=== PATIENT | male | born 1960 | race Caucasian/White ===

== ENCOUNTER → 2016-07-17 | Outpatient (CLI) | payer BC ==
[2016-07-17 18:22] LABS: Basophils # (A) 0.1 k/uL (0-0.2); Basophils % (A) 1 %; CH 31.9; CHCM 34.5; Eosinophils # (A) 0.1 k/uL (0-0.7); Eosinophils % (A) 2 %; HCT 45.8 % (39.0-53.0); HDW 2.54; HGB 15.8 gm/dL (13.0-17.5); Luc # (Auto) 0.16; Luc % (Auto) 3; Lymphocytes # (A) 2.1 k/uL (1.0-4.8); Lymphocytes % (A) 39 %; MCH 32.1 pg (25.0-35.0); MCHC 34.6 g/dL (31.0-37.0); MCV 92.8 fL (80.0-100.0); Mean Platelet Volume 8.8; Monocytes # (A) 0.4 k/uL (0-1.0); Monocytes % (A) 7 %; Neutrophils # (A) 2.7 k/uL (1.3-7.7); Neutrophils % (A) 48 %; RBC 4.94 m/uL (4.30-5.90); RDW 12.4 % (11.5-15.5); WBC 5.5 k/uL (3.8-10.6); WBC (Perox) 5.51
[2016-07-17 18:52] LABS: ALT 68 U/L (21-72); AST 38 U/L (17-59); Alkaline Phosphatase 60 U/L (38-126); Anion Gap 11 mmol/L; Blood Urea Nitrogen 15 mg/dL (9-20); Calcium 9.4 mg/dL (8.4-10.2); Carbon Dioxide 27 mmol/L (22-30); Chloride 103 mmol/L (98-107); Cholesterol 227 mg/dL (<200); Glucose 94 mg/dL (74-99); HDL Cholesterol 43 mg/dL (40-60); Non-African American GFR(MDRD) >60 (>60 ml/min/1.73 sqM); Potassium 4.3 mmol/L (3.5-5.1); Sodium 141 mmol/L (137-145); Total Bilirubin 1.4 mg/dL (0.2-1.3); Total Protein 7.2 g/dL (6.3-8.2); Triglycerides 256 mg/dL (<150)
== END | disposition home or self-care (01) ==
LOC: MMGSC 09:05
PROVIDERS: ATTEND Family Medicine
DX: Z00.00 Encounter for general adult medical examination without abnormal findings (principal); E78.00 Pure hypercholesterolemia, unspecified; Z12.5 Encounter for screening for malignant neoplasm of prostate; R03.0 Elevated blood-pressure reading, without diagnosis of hypertension
CPT/HCPCS: 80061; 80053; 84443; 85025; 36415; G0103

== ENCOUNTER → 2017-09-09 | Outpatient (CLI) | payer BC ==
[2017-09-09 11:30] LABS: Basophils # (A) 0.1 k/uL (0-0.2); Basophils % (A) 1 %; Eosinophils # (A) 0.1 k/uL (0-0.7); Eosinophils % (A) 3 %; HCT 44.7 % (39.0-53.0); HGB 15.3 gm/dL (13.0-17.5); Lymphocytes # (A) 2.1 k/uL (1.0-4.8); Lymphocytes % (A) 39 %; MCHC 34.2 g/dL (31.0-37.0); MCV 90.5 fL (80.0-100.0); Monocytes # (A) 0.4 k/uL (0-1.0); Monocytes % (A) 8 %; Neutrophils # (A) 2.5 k/uL (1.3-7.7); Neutrophils % (A) 46 %; Platelet Count 212 k/uL (150-450); RBC 4.94 m/uL (4.30-5.90); RDW 12.5 % (11.5-15.5); WBC 5.4 k/uL (3.8-10.6)
== END | disposition home or self-care (01) ==
LOC: LABPAT 10:26
PROVIDERS: ATTEND Surgery
DX: Z01.812 Encounter for preprocedural laboratory examination (principal); K43.2 Incisional hernia without obstruction or gangrene; F17.200 Nicotine dependence, unspecified, uncomplicated; D64.9 Anemia, unspecified
CPT/HCPCS: 36415; 85025; 93005

== ENCOUNTER 2017-09-17 08:42 | Day surgery (SDC) | payer BC ==
[2017-09-11 13:17] VITALS: BMI 30.2
[~2017-09-17 08:42] MED LIST: DEXAMETHASONE SOD PHOSPHATE 10 MG/ML 1 ML VIAL IV ONE; HEPARIN SODIUM,PORCINE 5,000 UNIT/ML 1 ML VIAL SQ ONE; LACTATED RINGERS 1,000 ML IV SCH; LIDOCAINE 1% 20 ML VIAL (10MG/ML) FOR IV START INTRADERMA PRN; ONDANSETRON 4 MG/2 ML VIAL IVP ONE; SCOPOLAMINE 1.5MG/72HR PATCH TRANSDERM ONE; ceFAZolin IN SWFI 2 GM/20 ML SYRINGE IVP ONE
--- NOTE | 2017-09-17 10:31 | P.GSHP ---
History of Present Illness H&P Date: 09/17/17 Chief Complaint: Incisional hernia This a 57-year-old male who has complaints of a abdominal mass at his umbilicus. Patient appears umbilical hernia repair. Patient has developed an incisional hernia at his umbilicus. He presents today for laparoscopic robotic assistance repair. Past Medical History Additional Past Medical History / Comment(s): ventral hernia History of Any Multi-Drug Resistant Organisms: None Reported Past Surgical History: Hernia Repair, Tonsillectomy Past Anesthesia/Blood Transfusion Reactions: Postoperative Nausea & Vomiting ( PONV) Smoking Status: Never smoker - Past Family History Mother Family Medical History: No Reported History Medications and Allergies Home Medications Medication Instructions Recorded Confirmed Type No Known Home Medications [No 09/11/17 09/17/17 History Known Home Medications] Allergies Allergy/AdvReac Type Severity Reaction Status Date / Time Penicillins Allergy Unknown Verified 09/17/17 09:51 Childhood Surgical - Exam Vital Signs Temp Pulse Resp BP Pulse Ox 97.7 F 77 16 152/96 98 09/17/17 09:44 09/17/17 09:44 09/17/17 09:44 09/17/17 09:44 09/17/17 09:44 - General well developed, no distress - Eyes PERRL - ENT normal pinna - Neck no masses - Respiratory normal expansion - Cardiovascular Rhythm: regular - Abdomen 1 cm incisional hernia located just below the umbilicus Abdomen: soft, non tender Assessment and Plan Assessment: Incisional hernia. We'll perform laparoscopic robotic-assisted repair.
[2017-09-17] MEDS ORDERED: GLYCOPYRROLATE 0.2 MG/ML 2 ML VIAL ONE (10:46)
[2017-09-17] MEDS ORDERED: MEPERIDINE 50 MG/ML SYRINGE ONE (10:46)
[2017-09-17] MEDS ORDERED: MIDAZOLAM 2 MG/2 ML VIAL ONE (10:46)
[2017-09-17] MEDS ORDERED: LIDOCAINE 1% INJ 10MG/ML (20 ML MDV) ONE (10:46)
[2017-09-17] MEDS ORDERED: PROPOFOL 10 MG/ML 20 ML VIAL IV ONE (10:46)
[2017-09-17] MEDS ORDERED: fentaNYL (PF) 50 MCG/ML 2 ML AMP ONE (10:46)
[2017-09-17] MEDS ORDERED: NEOSTIGMINE 1 MG/ML 10 ML VIAL ONE (10:46)
[2017-09-17] MEDS ORDERED: ROCURONIUM BROMIDE 10 MG/ML 10 ML VIAL IV ONE (10:46)
[2017-09-17] MEDS ORDERED: SUCCINYLCHOLINE CHLORIDE 100 MG/5 ML SYR IV ONE (10:46)
[2017-09-17] MEDS ORDERED: BUPIVACAINE (PF) 0.25% 30 ML VIAL SQ ONE ×2 (11:03)
[2017-09-17] MEDS ORDERED: LACTATED RINGERS 1,000 ML IV ONE (11:27)
[2017-09-17 12:21] VITALS: TEMP 97
[2017-09-17] MEDS: MORPHINE SULFATE 2 MG/ML SYRINGE IV PRN ×4 (12:34→13:07)
[2017-09-17] MEDS: fentaNYL (PF) 50 MCG/ML 2 ML AMP IVP ONE ×2 (13:18→13:22)
[2017-09-17] MEDS ORDERED: KETOROLAC 30 MG/ML 1 ML VIAL IVP ONE (13:40)
[2017-09-17] MEDS ORDERED: ONDANSETRON 4 MG/2 ML VIAL IVP ONE (14:09)
[2017-09-17] MEDS ORDERED: HYDROcodone/APAP 7.5-325MG 1 EACH TAB PO ONE (14:39)
[2017-09-17 15:18] VITALS: RESP 18
[2017-09-17 15:20] VITALS: BP 140/89; PULSE 90
--- NOTE | 2017-09-18 12:12 | P.OP ---
Date of Procedure: 09/17/17 Preoperative Diagnosis: Incisional hernia Postoperative Diagnosis: Incisional hernia Procedure(s) Performed: Robotic-assisted laparoscopic repair of incisional hernia Anesthesia: JEAN-PAUL Surgeon: Rafeal Kramer Estimated Blood Loss (ml): 5 Pathology: none sent Condition: stable Disposition: PACU Description of Procedure: The patient was placed on the operating table in the supine position. He received general anesthesia. His abdomen was prepped and draped usual fashion. Using a 5 mm optical trocar under direct visualization the peritoneal cavity was entered in the left upper quadrant. The abdomen was then insufflated. The laparoscope was placed back into the perineal cavity. Next a 8 mm robotic trocar was placed in the left lower quadrant and a 12 mm robotic trocar was placed in the left lateral position. The original 5 mm trocar was exchanged for a 8 mm robotic trocar. The patient's placed in the left side up position. And the patient was docked to the robot. The incisional hernia was visualized. Using hook cautery the peritoneum over the incisional hernia was excised. The fascial opening was repaired using 0V LOC suture. Next a piece of 11 cm round ventral light ST mesh was placed into the. Cavity and secured with 2 OV lock suture. The patient was undocked the robot. The needles were retrieved. The fascia of the 12 mm trocar site was closed with 0 Ethibond suture. Skin was closed interrupted 3-0 Monocryl suture. Dermabond dressings was applied. Patient tolerated procedure well and was sent to recovery room stable condition.
== END 2017-09-17 15:48 | disposition home or self-care (01) ==
LOC: OR 08:42 → EDSTATUS 10:15 → OR 15:48
PROVIDERS: ATTEND Surgery
DX: K43.2 Incisional hernia without obstruction or gangrene (principal); Z88.0 Allergy status to penicillin
CPT/HCPCS: 49654; S2900; 86850; 86900; 86901

== ENCOUNTER → 2017-09-19 | Outpatient (CLI) | payer BC ==
[2017-09-19 21:44] LABS: Basophils % (A) 0 %; Eosinophils # (A) 0.1 k/uL (0-0.7); Eosinophils % (A) 1 %; HCT 49.4 % (39.0-53.0); HGB 16.8 gm/dL (13.0-17.5); Lymphocytes # (A) 1.9 k/uL (1.0-4.8); Lymphocytes % (A) 21 %; MCH 30.9 pg (25.0-35.0); Mean Platelet Volume 8.7; Monocytes # (A) 0.7 k/uL (0-1.0); Monocytes % (A) 8 %; Neutrophils # (A) 6.4 k/uL (1.3-7.7); Neutrophils % (A) 69 %; Platelet Count 239 k/uL (150-450); RBC 5.43 m/uL (4.30-5.90); RDW 12.5 % (11.5-15.5); WBC 9.3 k/uL (3.8-10.6)
== END | disposition home or self-care (01) ==
LOC: MMGSC 14:24
PROVIDERS: ATTEND Family Medicine
DX: R50.9 Fever, unspecified (principal); J32.9 Chronic sinusitis, unspecified
CPT/HCPCS: 36415; 85025; 87070

== ENCOUNTER → 2018-02-24 | Outpatient (CLI) | payer BC ==
--- NOTE | 2018-02-25 02:06 | MR ---
EXAMINATION TYPE: MR shoulder LT wo con DATE OF EXAM: 02/24/2018 COMPARISON: None HISTORY: Left Shoulder Pain TECHNIQUE: Multiplanar, multisequence imaging of the left shoulder is performed without contrast. FINDINGS: There is shoulder joint effusion. There is fluid in the subacromial joint space. There is thickening and increased signal in the supraspinatus tendon with some thickening and retraction. This is a full- thickness tear. Biceps tendon is intact. The subscapularis tendon is intact. Glenoid charla appear intact. I see no ev idence of a fracture. There is moderate spurring at the AC joint. There is mild impingement on the jerome praspinatus muscle and tendon. IMPRESSION: There is full-thickness vertical tear through the supraspinatus tendon. There is extensive thickening of the supraspinatus tendon with edema. There is spurring at the AC joint and mild subacromial impin gement. Shoulder joint effusion.
== END ==
LOC: RADMRIMAIN 15:04
PROVIDERS: ATTEND Orthopaedic Surgery
DX: M75.102 Unspecified rotator cuff tear or rupture of left shoulder, not specified as traumatic (principal); M25.412 Effusion, left shoulder; M75.92 Shoulder lesion, unspecified, left shoulder

== ENCOUNTER → 2018-03-03 | Outpatient (CLI) | payer BC ==
[2018-03-03 11:07] LABS: Basophils # (A) 0.1 k/uL (0-0.2); Basophils % (A) 1 %; Eosinophils # (A) 0.1 k/uL (0-0.7); Eosinophils % (A) 2 %; HCT 45.9 % (39.0-53.0); HGB 15.5 gm/dL (13.0-17.5); Lymphocytes # (A) 1.9 k/uL (1.0-4.8); Lymphocytes % (A) 34 %; MCH 31.5 pg (25.0-35.0); MCHC 33.8 g/dL (31.0-37.0); MCV 93.2 fL (80.0-100.0); Mean Platelet Volume 7.6; Monocytes # (A) 0.4 k/uL (0-1.0); Monocytes % (A) 7 %; Neutrophils # (A) 3.2 k/uL (1.3-7.7); Neutrophils % (A) 55 %; Platelet Count 218 k/uL (150-450); RBC 4.92 m/uL (4.30-5.90); RDW 12.4 % (11.5-15.5); WBC 5.7 k/uL (3.8-10.6)
[2018-03-03 11:23] LABS: Potassium 4.2 mmol/L (3.5-5.1)
== END | disposition home or self-care (01) ==
LOC: LABWHC1 09:33
PROVIDERS: ATTEND Orthopaedic Surgery
DX: Z01.812 Encounter for preprocedural laboratory examination (principal); M75.42 Impingement syndrome of left shoulder
CPT/HCPCS: 36415; 80051; 85025

== ENCOUNTER → 2018-04-01 | Day surgery (SDC) | payer BC ==
[2018-03-25 15:52] VITALS: BMI 29.5
--- NOTE | 2018-03-31 13:52 | HP ---
HISTORY AND PHYSICAL DATE OF SERVICE: 04/01/2018 Tenzin Perdomo is a 57-year-old patient seen with progressive left shoulder pain. We discussed treatment options. He elected to proceed with arthroscopy. Consent was obtained. PAST MEDICAL HISTORY: Noncontributory. PAST SURGICAL HISTORY: Noncontributory. DAILY MEDICATIONS: None. ALLERGIES: PENICILLIN. SOCIAL HISTORY: Patient denies tobacco use. PHYSICAL EVALUATION LEFT SHOULDER: Flexion 150 degrees, abduction 140 degrees, external rotation 60 degrees with some weakness, tenderness along the anterolateral acromion rotator cuff insertion site. Impingement sign positive 70 degrees. Distal neurovascular exam intact. LEFT SHOULDER RADIOGRAPHS: Type 2 anterior acromion, evidence for acromioclavicular joint osteoarthritis. Left shoulder MRI revealed rotator cuff tear, acromioclavicular joint osteoarthritis and impingement. IMPRESSION: 1. Left shoulder impingement with rotator cuff tear. 2. Left shoulder acromioclavicular joint osteoarthritis. PLAN: Left shoulder arthroscopy with subacromial decompression, probable arthroscopic rotator cuff repair, possible Jessica procedure and debridement. MMODL / IJN: [id number] /
[~2018-04-01] MED LIST changes: +ENALAPRILAT 1.25 MG/ML 1 ML VIAL IVP ONE; -HEPARIN SODIUM,PORCINE 5,000 UNIT/ML 1 ML VIAL SQ ONE; +HYDROmorphone 1 MG/ML 1 ML SYRINGE IVP PRN; +LABETALOL SYRINGE 5 MG/ML IVP ONE; +LACTATED RINGERS 1,000 ML IV ONE; +LIDOCAINE 1% 20 ML VIAL (10MG/ML) FOR IV START INTRADERMA ONE; -LIDOCAINE 1% 20 ML VIAL (10MG/ML) FOR IV START INTRADERMA PRN; +LIDOCAINE 1% INJ 10MG/ML (20 ML MDV) ONE; +METOPROLOL TARTRATE 5 MG/5 ML VIAL IVP ONE; +MIDAZOLAM 2 MG/2 ML VIAL IV ONE; +MIDAZOLAM 2 MG/2 ML VIAL ONE; +PHENYLEPHRINE-0.9% NACL SYG 1 MG/10 ML SYRINGE ONE; +PROPOFOL 10 MG/ML 20 ML VIAL IV ONE; +ROPIVACAINE 5 MG/ML 30 ML VIAL ONE; +SUCCINYLCHOLINE CHLORIDE 100 MG/5 ML SYR IV ONE; +fentaNYL (PF) 50 MCG/ML 2 ML AMP IV ONE; +fentaNYL (PF) 50 MCG/ML 2 ML AMP ONE; +hydrALAZINE HCL 20 MG/ML 1 ML VIAL IVP ONE
[2018-04-01 09:47] VITALS: TEMP 97
--- NOTE | 2018-04-01 10:05 | P.OP ---
Date of Procedure: 04/01/18 Preoperative Diagnosis: Left shoulder impingement Postoperative Diagnosis: 1. Left shoulder rotator cuff tear 2. Left shoulder impingement 3. Left shoulder acromioclavicular joint osteoarthritis 4. Left shoulder partial long head biceps tendon tear 5. Left shoulder labral tear Procedure(s) Performed: 1. Left shoulder arthroscopic rotator cuff repair 2. Left shoulder arthroscopic subacromial decompression 3. Left shoulder arthroscopic Jessica procedure 4. Left shoulder arthroscopic biceps tenotomy 5. Left shoulder arthroscopic debridement labral tear Implants: 44.75 Arthrex swivel lock anchors Anesthesia: GETA, regional (Interscalene block) Surgeon: Shaheed Toribio Wet Primer Powder Blender #1: Adaild Wren Estimated Blood Loss (ml): 12 Pathology: none sent Condition: stable Disposition: PACU Indications for Procedure: 57-year-old patient seen with progressive left shoulder pain. After treatment options were discussed, he elected to proceed with arthroscopy. Operative Findings: See description of procedure Description of Procedure: Patient underwent an interscalene block by department of anesthesia for postoperative pain control. The patient was then taken to the operative suite. The patient underwent a general anesthetic by the department of anesthesia. The patient was placed into a lateral position and secured. There was appropriate padding of the bony prominence. Left shoulder was then prepped and draped in normal sterile orthopedic fashion. We placed the extremity in 10 pounds of longitudinal traction. A posterior incision was now made for a posterior working portal site. The trocar and cannula were inserted into the glenohumeral joint. Arthroscopy was initiated. Spinal needle was now inserted anteriorly, to ascertain the anterior working portal site. An incision was now made in that area, a trocar was inserted followed by a probe. There was partial tearing long head biceps tendon. There was superficial tearing of the anterior and superior labrum. There were grade 1 chondromalacia changes of the glenoid with no osteochondral tears. There was no obvious rotator cuff tear visualized from the glenohumeral side. I performed an arthroscopic biceps tenotomy. I debrided the labral tear down to stable tissue. The residual labrum was stable. Instruments now removed from the glenohumeral joint. Utilizing the posterior working portal site, the trocar and cannula were inserted into the subacromial space. Arthroscopy initiated. I made an incision 2 fingerbreadths lateral to the acromion. I introduced my trocar followed by my ArthroCare ablator. I now began ablating thick subacromial bursal tissue, which exposed the undersurface of the anterior acromion. There was diminished subacromial space. There was a very prominent anterior acromion. A motorized bur was introduced and a subacromial decompression was performed. I also excised some osteophytes off the inferior aspect of the distal clavicle. The AC joint was visualized and noted to be fairly arthritic. The motorized bur was introduced in the anterior portal site and a Jessica procedure was performed without difficulty, decompressing the AC joint nicely. I turned my attention to the rotator cuff. There was a 2 cm rotator cuff tear. I debrided the margins getting down to stable tendon tissue. The defect now measured 2.5 cm and freely mobile over the footprint. I introduced my motorized bur and abraded the footprint area, getting some petechial bleeding. I now made an accessory portal site off the lateral aspect of the acromion. I punched 2 holes medial for medial row fixation with the assistance of Preston MANZANARES carefully tapping the punch with a mallet as I held the punch and the camera. I now introduced both anchors into the pre-punched holes and Preston MANZANARES tapped them with the mallet as I held anchors and the camera. Preston MANZANARES now screwed the anchors in place a while I held the anchor guide and camera. All 8 limbs of suture were now passed through good bites of rotator cuff tendon. I now punched 2 holes for lateral row fixation again I held the punch and camera while Preston MANZANARES used a mallet to tap in the punch. We now passed sutures through both anchors and individually I introduced the anchors into the pre- punch holes I held the anchor guide in position with one hand holding the camera with the other hand while Preston MANZANARES tensioned the sutures and screwed in the anchors one at a time. All residual suture limbs were now clipped. We had good compression of the tendon along the entire footprint. Injected 1 mL Renue intra-articular. Instruments now removed from the portal sites. All portal sites were approximated with nylon suture. Sterile dressings were applied followed by a shoulder immobilizer. Adalid MANZANARES assisted in this complex case. The patient was awakened, transferred to a bed, and taken to recovery in stable condition.
--- NOTE | 2018-04-01 10:11 | P.ONQ ---
Anesthesiology Proc Note - PNB - Peripheral Nerve Block Performed Left Interscalene Single Time Out Performed: Yes Procedure Start Time: 06:52 Procedure Stop Time: 07:01 Indication: Acute Post-Operative Pain, Analgesia, Dx/Pain Location, Requested by physician Sedation Type: Sedate with meaningful contact maintained Preparation: Sterile Prep Position: Supine Catheter: None Needle Types: Spayee Needle Size: 50mm (2") Needle Gauge: 20 Technique: Ultrasound Injectate: 0.5% Ropivacaine (see comment for volume) (20ml) Blood Aspirated: No Pain Paresthesia on Injection Noted: No Resistance on Injection: Normal Events: Uneventful and Well Tolerated
[2018-04-01 10:59] VITALS: RESP 16
[2018-04-01 13:28] VITALS: BP 160/89; PULSE 80
== END | disposition home or self-care (01) ==
LOC: OR 06:14
PROVIDERS: ATTEND Orthopaedic Surgery
DX: M75.102 Unspecified rotator cuff tear or rupture of left shoulder, not specified as traumatic (principal); M75.42 Impingement syndrome of left shoulder; M19.012 Primary osteoarthritis, left shoulder; S46.112A Strain of muscle, fascia and tendon of long head of biceps, left arm, initial encounter; S43.492A Other sprain of left shoulder joint, initial encounter; X58.XXXA Exposure to other specified factors, initial encounter; M94.212 Chondromalacia, left shoulder; M25.712 Osteophyte, left shoulder; Z88.0 Allergy status to penicillin
CPT/HCPCS: 64415; 29824; 29826; 29827; C1713 ×2; C1765; J2250; J0360; J1100; J2405; J2001; J3010; J2795; J2370; J0330; J2704; J0690

== ENCOUNTER → 2018-08-25 | Day surgery (SDC) | payer BC ==
[2018-08-19 14:45] VITALS: BMI 29.5
[~2018-08-25] MED LIST changes: -DEXAMETHASONE SOD PHOSPHATE 10 MG/ML 1 ML VIAL IV ONE; -ENALAPRILAT 1.25 MG/ML 1 ML VIAL IVP ONE; -HYDROmorphone 1 MG/ML 1 ML SYRINGE IVP PRN; -LABETALOL SYRINGE 5 MG/ML IVP ONE; -LACTATED RINGERS 1,000 ML IV ONE; -LIDOCAINE 1% 20 ML VIAL (10MG/ML) FOR IV START INTRADERMA ONE; -METOPROLOL TARTRATE 5 MG/5 ML VIAL IVP ONE; -MIDAZOLAM 2 MG/2 ML VIAL IV ONE; -ONDANSETRON 4 MG/2 ML VIAL IVP ONE; -PHENYLEPHRINE-0.9% NACL SYG 1 MG/10 ML SYRINGE ONE; -ROPIVACAINE 5 MG/ML 30 ML VIAL ONE; -SCOPOLAMINE 1.5MG/72HR PATCH TRANSDERM ONE; -SUCCINYLCHOLINE CHLORIDE 100 MG/5 ML SYR IV ONE; -ceFAZolin IN SWFI 2 GM/20 ML SYRINGE IVP ONE; -fentaNYL (PF) 50 MCG/ML 2 ML AMP IV ONE; -hydrALAZINE HCL 20 MG/ML 1 ML VIAL IVP ONE
[2018-08-25 07:11] VITALS: RESP 16; TEMP 97.4
--- NOTE | 2018-08-25 07:53 | P.GSHP ---
History of Present Illness H&P Date: 08/25/18 Chief Complaint: Screening colonoscopy This a 58-year-old male who presents today for screening colonoscopy patient denies any significant GI complaints. Past Medical History Additional Past Medical History / Comment(s): SCREENING History of Any Multi-Drug Resistant Organisms: None Reported Past Surgical History: Hernia Repair, Orthopedic Surgery, Tonsillectomy Additional Past Surgical History / Comment(s): INCISIONAL HERNIA REPAIR , THUMB- TENDON REPAIR, LT ROTATOR CUFF REPAIR Past Anesthesia/Blood Transfusion Reactions: Motion Sickness, Postoperative Nausea & Vomiting (PONV) Smoking Status: Never smoker - Past Family History Mother Family Medical History: No Reported History Medications and Allergies Home Medications Medication Instructions Recorded Confirmed Type Naproxen [Naprosyn] 500 mg PO Q12HR 08/19/18 08/19/18 History Allergies Allergy/AdvReac Type Severity Reaction Status Date / Time Penicillins Allergy Unknown Verified 08/19/18 14:42 Childhood Surgical - Exam Vital Signs Temp Pulse Resp BP Pulse Ox 97.4 F L 74 16 168/96 99 08/25/18 07:08 08/25/18 07:08 08/25/18 07:08 08/25/18 07:08 08/25/18 07:08 - General well developed, well nourished, no distress - Eyes PERRL - ENT normal pinna - Neck no masses - Respiratory normal expansion - Cardiovascular Rhythm: regular - Abdomen Abdomen: soft, non tender Assessment and Plan Assessment: We'll perform screening colonoscopy.
--- NOTE | 2018-08-25 08:07 | P.OP ---
Date of Procedure: 08/25/18 Preoperative Diagnosis: Screening colonoscopy Postoperative Diagnosis: Normal colon Procedure(s) Performed: Colonoscopy Anesthesia: MAC Surgeon: Rafael Kramer Pathology: none sent Condition: stable Disposition: PACU Description of Procedure: PROCEDURE: The patient was placed on the endoscopy table in the lateral position. Digital rectal examination was performed which revealed no abnormalities. The prostate was symmetrical without nodules. Flexible colonoscope was then placed in the patient's anus and passed throughout the entire colon. The ileocecal valve was visualized. The cecum, ascending, transverse, descending and sigmoid colon were normal. The rectum was normal as well. There were no masses, polyps or diverticula noted in the entire colon. SUMMARY OF FINDINGS: Normal colonoscopy.
[2018-08-25 08:34] VITALS: BP 138/87; PULSE 68
== END | disposition home or self-care (01) ==
LOC: ORWHC2ENDO 06:48
PROVIDERS: ATTEND Surgery
DX: Z12.11 Encounter for screening for malignant neoplasm of colon (principal); Z79.1 Long term (current) use of non-steroidal anti-inflammatories (NSAID); Z88.0 Allergy status to penicillin
CPT/HCPCS: J2250; J2001; J3010; J2704; G0121

== ENCOUNTER → 2021-01-09 | Outpatient (CLI) | payer BC ==
[2021-01-09 12:25] LABS: Basophils # (A) 0.1 k/uL (0-0.2); Basophils % (A) 1 %; Eosinophils # (A) 0.1 k/uL (0-0.7); Eosinophils % (A) 2 %; HCT 47.8 % (39.0-53.0); HGB 16.1 gm/dL (13.0-17.5); Lymphocytes # (A) 2.1 k/uL (1.0-4.8); Lymphocytes % (A) 31 %; MCH 32.1 pg (25.0-35.0); MCHC 33.7 g/dL (31.0-37.0); Mean Platelet Volume 8.2; Monocytes # (A) 0.4 k/uL (0-1.0); Monocytes % (A) 5 %; Neutrophils % (A) 59 %; Platelet Count 235 k/uL (150-450); RBC 5.03 m/uL (4.30-5.90); RDW 12.8 % (11.5-15.5); WBC 6.8 k/uL (3.8-10.6)
[2021-01-09 13:00] LABS: Potassium 4.5 mmol/L (3.5-5.1)
== END | disposition home or self-care (01) ==
LOC: LABPAT 11:07
PROVIDERS: ATTEND Orthopaedic Surgery
DX: Z01.812 Encounter for preprocedural laboratory examination (principal); M23.92 Unspecified internal derangement of left knee
CPT/HCPCS: 80051; 85025; 93005

== ENCOUNTER 2021-01-24 08:55 | Day surgery (SDC) | payer BC ==
[2021-01-18 15:57] VITALS: BMI 28.8
--- NOTE | 2021-01-23 16:52 | HP ---
HISTORY AND PHYSICAL REASON FOR ADMISSION: Surgery scheduled for 01/24/2021. HISTORY OF PRESENT ILLNESS: Tenzin Perdomo is a 60-year-old gentleman seen with progressive left knee pain. We discussed options for treatment. He elected to proceed with arthroscopy. Consent was obtained. PAST MEDICAL HISTORY: Hypertension. PAST SURGICAL HISTORY: Shoulder arthroscopy. MEDICATION: Metoprolol. ALLERGIES: PENICILLIN. SOCIAL HISTORY: Denies tobacco use. PHYSICAL EVALUATION OF THE LEFT KNEE: Range of motion is 0-125. Mild effusion. Tenderness medial joint line. Positive medial Anitha's. Ligaments stable. Hip rotation without pain. Distal neurovascular exam intact. MRI of the left knee revealed a large medial meniscal tear and osteoarthritic changes. IMPRESSION: 1. Internal derangement of left knee with medial meniscal tear. 2. Left knee osteoarthritis. 3. Hypertension. PLAN: Left knee arthroscopy with partial meniscectomy and debridement. Surgery 01/24/2021. MMODL / IJN: [id number] /
[~2021-01-24 08:55] MED LIST changes: +DEXAMETHASONE SOD PHOSPHATE 4 MG/ML 1 ML VIAL IV ONE; +HYDROmorphone 0.5 MG/0.5 ML SYRINGE IVP PRN; -LIDOCAINE 1% INJ 10MG/ML (20 ML MDV) ONE; -MIDAZOLAM 2 MG/2 ML VIAL ONE; +ONDANSETRON 4 MG/2 ML VIAL IVP ONE; -PROPOFOL 10 MG/ML 20 ML VIAL IV ONE; -fentaNYL (PF) 50 MCG/ML 2 ML AMP ONE
[2021-01-24] MEDS ORDERED: LIDOCAINE 1% INJ 10MG/ML (20 ML MDV) ONE (11:04)
[2021-01-24] MEDS ORDERED: MIDAZOLAM 2 MG/2 ML VIAL ONE (11:04)
[2021-01-24] MEDS ORDERED: KETOROLAC 15 MG/ML 1 ML VIAL ONE (11:04)
[2021-01-24] MEDS ORDERED: PROPOFOL 10 MG/ML 20 ML VIAL IV ONE (11:04)
[2021-01-24] MEDS ORDERED: fentaNYL (PF) 50 MCG/ML 2 ML AMP ONE (11:04)
--- NOTE | 2021-01-24 11:52 | P.OP ---
Date of Procedure: 01/24/21 Preoperative Diagnosis: Internal derangement left knee Postoperative Diagnosis: 1. Tear medial meniscus left knee 2. Grade 4 chondromalacia patella left knee 3. Reactive synovitis medial, lateral and suprapatellar compartments left knee Procedure(s) Performed: 1. Arthroscopic partial medial meniscectomy left knee 2. Arthroscopic partial synovectomy medial, lateral and suprapatellar compartments left knee Anesthesia: GETA, local Surgeon: Shaheed Toribio Estimated Blood Loss (ml): 7 Pathology: none sent Condition: stable Disposition: PACU Indications for Procedure: 60-year-old patient seen with progressive left knee pain. After treatment options were discussed, he elected to proceed with arthroscopy. Operative Findings: See description of procedure Description of Procedure: Patient was taken to the operative suite. Patient underwent a general anesthetic by the department of anesthesia. Patient was given preoperative antibiotics. The left lower extremity was placed in a well-padded arthroscopic leg delgadillo. The left leg was prepped and draped in the normal sterile orthopedic fashion. A lateral parapatellar and suprapatellar incision was made. Trochars were inserted. Arthroscopy was initiated. Suprapatellar pouch revealed diffuse thick reactive synovitis. The patellofemoral joint appeared to articulate congruently. There was grade 4 chondromalacia of the patella with virtually the entire surface revealing exposed bone. There were grade 4 chondromalacia changes of the femoral sulcus as well with an area of exposed bone centrally. This was essentially [id number] arthritis at the patell ofemoral joint. There were no osteochondral tears present. The scope was guided into the medial gutter. No loose bodies or plica were identified The scope was then guided into the medial compartment. A medial parapatellar incision was made. Trocar inserted followed by probe. There was a large tear involving the posterior horn medial meniscus. There were grade 1/2 chondromalacia changes of the medial femoral condyle with no osteochondral tears present. There was thick reactive synovitis anteriorly. I performed a partial medial meniscectomy getting down to stable meniscal tissue. I performed a partial synovectomy decompressing the reactive synovitis anteriorly. The shaver was removed. The residual meniscus was probed and found to be stable. There was good decompression of the synovitis. Scope and probe were then guided into the intercondylar notch. Cruciates were identified, probed and found to be stable. The scope and probe were then guided into lateral compartment. Lateral meniscus was probed and found to be stable. There was thick reactive synovitis anteriorly. I introduced a motorized shaver and performed a partial synovectomy. The shaver was removed. There was good decompression of the synovitis. The scope was in guided back into the suprapatellar compartment. I introduced a motorized shaver into the super compartment. I debrided some piecemeal fragments of meniscus I encountered. I performed a partial synovectomy. Shaver was removed. There was good decompression of the synovitis. We again noted [id number] arthritis involving the patellofemoral joint. No osteochondral tears were present. I took one more look on the entire knee, no residual debris. Instruments were now removed from the joint. The joint was infiltrated with .25% Marcaine. Steri-Strips were applied to the portal sites. Sterile dressings were applied. The patient was placed into a MARCELINO hose. No tourniquet was utilized. The patient was awakened, transferred to a bed and taken to recovery stable satisfactory condition.
[2021-01-24 11:56] VITALS: TEMP 98
[2021-01-24] MEDS ORDERED: LACTATED RINGERS 1,000 ML IV ONE (12:07)
[2021-01-24 13:47] VITALS: BP 152/91; PULSE 71; RESP 18
== END 2021-01-24 14:05 | disposition home or self-care (01) ==
LOC: OR 08:55
PROVIDERS: ATTEND Orthopaedic Surgery
DX: S83.242A Other tear of medial meniscus, current injury, left knee, initial encounter (principal); M22.42 Chondromalacia patellae, left knee; M17.12 Unilateral primary osteoarthritis, left knee; I10 Essential (primary) hypertension; Z79.899 Other long term (current) drug therapy; Z88.0 Allergy status to penicillin
CPT/HCPCS: 29881; J2250; J1100; J0690; J2405; J2001; J3010; J1885; J2704; J1170

== ENCOUNTER → 2021-05-11 | Outpatient (CLI) | payer BC ==
[2021-05-11 12:38] LABS: Potassium 4.3 mmol/L (3.5-5.1)
[2021-05-11 12:40] LABS: Prothrombin Time 10.7 sec (9.0-12.0)
[2021-05-11 13:04] LABS: Basophils # (A) 0.1 k/uL (0-0.2); Basophils % (A) 1 %; Eosinophils # (A) 0.1 k/uL (0-0.7); Eosinophils % (A) 3 %; HCT 45.7 % (39.0-53.0); HGB 15.1 gm/dL (13.0-17.5); Lymphocytes # (A) 2.1 k/uL (1.0-4.8); Lymphocytes % (A) 37 %; MCH 31.2 pg (25.0-35.0); MCHC 33.1 g/dL (31.0-37.0); MCV 94.2 fL (80.0-100.0); Mean Platelet Volume 8.4; Monocytes # (A) 0.4 k/uL (0-1.0); Monocytes % (A) 7 %; Neutrophils # (A) 2.8 k/uL (1.3-7.7); Neutrophils % (A) 50 %; Platelet Count 224 k/uL (150-450); RBC 4.85 m/uL (4.30-5.90); RDW 11.8 % (11.5-15.5); WBC 5.6 k/uL (3.8-10.6)
== END | disposition home or self-care (01) ==
LOC: LABPAT 11:08
PROVIDERS: ATTEND Orthopaedic Surgery
DX: Z01.812 Encounter for preprocedural laboratory examination (principal); M16.12 Unilateral primary osteoarthritis, left hip
CPT/HCPCS: 80051; 85025; 85610; 87070

== ENCOUNTER 2021-05-21 06:16 | Day surgery (SDC) | payer BC ==
[2021-05-17 11:55] VITALS: BMI 28.8
--- NOTE | 2021-05-20 11:54 | HP ---
HISTORY AND PHYSICAL REASON FOR ADMISSION: Surgery scheduled for 05/21/2021 HISTORY OF PRESENT ILLNESS: Tenzin Perdomo is a 61-year-old patient seen with symptomatic left hip osteoarthritis. We discussed options for treatment. He elected to proceed with direct anterior left total hip arthroplasty. Consent was obtained. PAST MEDICAL HISTORY: Noncontributory. PAST SURGICAL HISTORY: Shoulder arthroscopy, knee arthroscopy. MEDICATIONS: Aleve. ALLERGIES: None reported. SOCIAL HISTORY: Denies tobacco use. PHYSICAL EXAMINATION: Evaluation of the left hip: He has very limited range of motion. Severe pain. Positive impingement sign. Straight-leg raise negative. His distal neurovascular exam is intact. RADIOGRAPHS: Of the left hip reveals severe osteoarthritic changes. IMPRESSION: Left hip osteoarthritis. PLAN: Direct anterior left total hip arthroplasty. Surgery scheduled 05/21/2021. MMODL / IJN: [id number] /
[~2021-05-21 06:16] MED LIST changes: +ACETAMINOPHEN TAB 500 MG TAB PO PRN; -DEXAMETHASONE SOD PHOSPHATE 4 MG/ML 1 ML VIAL IV ONE; -HYDROmorphone 0.5 MG/0.5 ML SYRINGE IVP PRN; -LACTATED RINGERS 1,000 ML IV SCH; +MELOXICAM 7.5 MG TAB PO PRN; -ONDANSETRON 4 MG/2 ML VIAL IVP ONE; +ROPIVACAINE 246.25 MG, EPINEPHrine 0.5 MG, KETOROLAC (30 mg/mL) 30 MG, cloNIDine HCL/PF... MISCELLANE PRN; +TRANEXAMIC ACID 1,000 MG in SODIUM CHLORIDE 0.9% 100 ML IVPB PRN
[2021-05-21] MEDS ORDERED: LACTATED RINGERS 1,000 ML IV ONE ×4 (07:07→09:33)
[2021-05-21] MEDS ORDERED: ONDANSETRON 4 MG/2 ML VIAL ONE (07:10)
[2021-05-21] MEDS ORDERED: DEXAMETHASONE SOD PHOSPHATE 4 MG/ML 1 ML VIAL IVP ONE (07:13)
[2021-05-21] MEDS ORDERED: LACTATED RINGERS 1,000 ML IV SCH (07:23)
[2021-05-21] MEDS ORDERED: DEXAMETHASONE SOD PHOSPHATE 4 MG/ML 1 ML VIAL IV ONE (07:23)
[2021-05-21] MEDS ORDERED: ONDANSETRON 4 MG/2 ML VIAL IVP ONE ×2 (07:23→10:56)
[2021-05-21] MEDS ORDERED: ROCURONIUM 10 MG/ML (5 ML VIAL) IV ONE (07:38)
[2021-05-21] MEDS ORDERED: NEOSTIGMINE 1 MG/ML 10 ML VIAL ONE (07:38)
[2021-05-21] MEDS ORDERED: TRANEXAMIC ACID 1,000 MG/10 ML VIAL ONE (07:38)
[2021-05-21] MEDS ORDERED: MIDAZOLAM 2 MG/2 ML VIAL ONE (07:38)
[2021-05-21] MEDS ORDERED: PROPOFOL 10 MG/ML 20 ML VIAL IV ONE (07:38)
[2021-05-21] MEDS ORDERED: SODIUM CHLORIDE 0.9% 100 ML BAG ONE (07:38)
[2021-05-21] MEDS ORDERED: fentaNYL (PF) 50 MCG/ML 2 ML AMP ONE (07:38)
[2021-05-21] MEDS ORDERED: GLYCOPYRROLATE 0.2 MG/ML 2 ML VIAL ONE (07:38)
[2021-05-21] MEDS ORDERED: LIDOCAINE 1% INJ 10MG/ML (20 ML MDV) ONE (07:38)
[2021-05-21] MEDS ORDERED: SUCCINYLCHOLINE CHLORIDE 100 MG/5 ML SYR IV ONE (07:38)
[2021-05-21] MEDS ORDERED: ceFAZolin 1,000 MG in SODIUM CHLORIDE 0.9% 1,000 ML IRRIGATION ONE (08:12)
[2021-05-21] MEDS ORDERED: ONDANSETRON 4 MG/2 ML VIAL IVP PRN (09:33)
[2021-05-21] MEDS ORDERED: traMADol 50 MG TAB PO PRN (09:33)
[2021-05-21] MEDS ORDERED: HYDROmorphone 0.5 MG/0.5 ML SYRINGE IVP PRN (09:33)
[2021-05-21] MEDS ORDERED: HYDROmorphone 1 MG/ML 1 ML SYRINGE IVP PRN (09:33)
[2021-05-21] MEDS ORDERED: HYDROmorphone 0.2 MG/1 ML SYRINGE IVP PRN (09:33)
[2021-05-21] MEDS ORDERED: NALOXONE 0.4 MG/ML 1 ML VIAL IV PRN (09:33)
[2021-05-21] MEDS ORDERED: ACETAMINOPHEN TAB 325 MG TAB PO PRN (09:33)
--- NOTE | 2021-05-21 09:33 | P.OP ---
Date of Procedure: 05/21/21 Preoperative Diagnosis: Left hip osteoarthritis Postoperative Diagnosis: Left hip osteoarthritis Procedure(s) Performed: Direct anterior left total hip arthroplasty Implants: 1. Depuy Corail KLA size 11 high offset with collar pressfit femoral stem 2. Depuy pinnacle 56 mm press-fit acetabular shell 3. Depuy pinnacle neutral polyethylene acetabular liner 36 mm ID 56 mm OD 4. Biolox delta ceramic femoral head +1.5 36 mm Anesthesia: RUBENSA, local Surgeon: Shaheed Toribio [employer] Printer #1: Adalid Wren Estimated Blood Loss (ml): 85 Pathology: other (Femoral head) Condition: stable Disposition: PACU Indications for Procedure: 61-year-old patient seen with symptomatic left hip osteoarthritis. After treatment options were discussed with him, he elected to proceed with direct anterior left total hip arthroplasty. Operative Findings: See description of procedure Description of Procedure: The patient was taken to the operative suite. Patient underwent a general ane sthetic by the department of anesthesia. Patient was then transferred to the [place] table. Patient was given preoperative IV antibiotics and TXA. Both lower extremities were placed in standard leg spars. The hip was then prepped and draped in the normal sterile orthopedic fashion. A standard anterior incision was made beginning 3 cm lateral and 1 cm distal to the ASIS extending 10 cm. Dissection was then carried down through the subcutaneous soft tissues down to the fascia overlying the tensor fascia camilo. An incision was now made through the fascia. Careful dissection was taken down exposing the tensor fascia camilo muscle. A Cobra retractor was now placed along the medial femoral neck and a second one along the lateral femoral neck. The venous circumflex vessels were now identified, cauterized and clipped. We identified the anterior hip capsule. An incision was made through the hip capsule along the lateral border. I performed a partial anterior capsulectomy. Retractors were now placed around the femoral neck itself. A femoral neck cut was now made with a sagittal saw. It was completed with an osteotome at the lateral neck area. The femoral head was now removed without difficulty. The extremity was now rotated to 60 of external rotation. It was locked in position. Residual labrum was now debrided out. Serial reaming was performed of the acetabulum while Preston MANZANARES assisted holding an anterior retractor for exposure. Once we reached the appropriate size and a trial was position and fit nicely. The appropriate size was now chosen opened and made available. It was introduced into the acetabulum without difficulty. The C-arm/fluoroscopy was now brought into the operative field. We made sure we had a true AP pelvic view. We now under direct C-ar m/fluoroscopy introduced into the acetabular component with appropriate version and inclination. I held the cup in appropriate position well Preston MANZANARES used a mallet to seat the acetabular component. I noted the component now to be well seated and stable. Acetabular cup introduce her was removed. The C-arm was pulled back. An appropriate liner was introduced and clicked into position. It was felt to be stable. At this point retractors were removed. The extremity was now placed into 140 external rotation with no traction. The leg was now dropped to the ground and adducted. Appropriate retractors were now positioned along the proximal femur. We also placed our femoral look into position. Additional capsular releasing was performed to gain access to the proximal femur. We now used a box osteotome. A canal finder was now utilized. Serial broaching was now performed with the assistance of Preston MANZANARES tapping the broaches down with a mallet while held the broach in appropriate rotation and position. This was done until we reached the appropriate size with good overall rotational stability. Appropriate calcar planing was performed. A trial head/neck was placed into position. The hip was now reduced. The C- arm/fluoroscopy was brought back into the operative field. I took an AP pelvis demonstrating adequate leg length alignment. The trial components appeared appropriately positioned and appropriately sized. The C-arm/fluoroscopy was pulled back. Retractors were repositioned and the hip was dislocated. The leg was again taken down to the ground and adducted. Appropriate retractors were repositioned as well as the femoral hook. All trial components were removed. The femoral implant was opened along with the femoral head. The femoral implant was introduced on the appropriate handle into our pre-broached area. I held the component position well Preston MANZANARES used a mallet to seat the femoral component. The femoral component was now noted to be well seated and stable.. The femoral head was introduced with good positioning and fixation noted. Retractors were now removed. The hip was now reduced. There appeared be good positioning of the hip confirmed on intraoperative fluoroscopy. Spot films were obtained to document this. A second gram of TXA was given. The deep and superficial soft tissues were infiltrated with local analgesic. Bipolar cautery had been utilized intermittently through the procedure for hemostasis. The wound was irrigated copiously with pulse lavage mechanical irrigation. The fascia was repaired with Vicryl suture. The subcutaneous soft tissues were repaired in layers with Vicryl suture. The skin was approximated with pernio/Dermabond. Sterile dressings were applied. Patient was then awakened, t ransferred to a bed and taken to recovery in stable condition. Preston MANZANARES assisted with the complex procedure.
[2021-05-21] MEDS: HYDROmorphone 0.5 MG/0.5 ML SYRINGE IVP PRN ×4 (09:45→10:29)
--- NOTE | 2021-05-21 09:45 | FL ---
EXAMINATION TYPE: FL guidance operating room DATE OF EXAM: 05/21/2021 HISTORY: Fluoroscopy time 15 seconds of fluoroscopy provided. IMPRESSION: 1. Fluoroscopy time.
--- NOTE | 2021-05-21 09:49 | XR ---
EXAMINATION TYPE: XR Hip Limited LT DATE OF EXAM: 05/21/2021 COMPARISON: NONE HISTORY: Postop TECHNIQUE: One view submitted. FINDINGS: There is postsurgical change in near anatomic alignment. There is soft tissue edema and emphysema. IMPRESSION: 1. Postoperative change. Appears in near-anatomic alignment.
[2021-05-21 10:00] VITALS: TEMP 97.7
[2021-05-21 13:58] VITALS: BP 123/78; PULSE 71; RESP 18
== END 2021-05-21 13:55 | disposition home health service (06) ==
LOC: OR 06:16
PROVIDERS: ATTEND Orthopaedic Surgery
DX: M16.11 Unilateral primary osteoarthritis, right hip (principal); M16.12 Unilateral primary osteoarthritis, left hip; Z98.890 Other specified postprocedural states; Z79.1 Long term (current) use of non-steroidal anti-inflammatories (NSAID); I10 Essential (primary) hypertension; Z79.899 Other long term (current) drug therapy; Z88.0 Allergy status to penicillin
CPT/HCPCS: 97110; 97161; 86900; 86901; 86850; 88300; 73501; 27130; C1776; J2250; J0171; J1100; J2710; J0690 ×2; J2405; J2001; J3010; J1885; J2795; J0330; J2704; J0735; J1170

== ENCOUNTER → 2022-09-13 | Outpatient (CLI) | payer OTHER ==
--- NOTE | 2022-09-13 14:07 | CT ---
EXAMINATION TYPE: CT pelvis w con CT DLP: 658.80 mGycm, Automated exposure control for dose reduction was used. DATE OF EXAM: 09/13/2022 1:23 PM COMPARISON: None CLINICAL INDICATION:Male, 62 years old with history of K40.90; LT inguinal hernia TECHNIQUE: Axial CT of the pelvis. Sagittal and coronal reformats were created on a separate worksta tion. Contrast used:100 mL of Isovue 300 with IV Contrast, Oral contrast used: with Oral Contrast FINDINGS: BLADDER: Unremarkable REPRODUCTIVE: Prostate is enlarged in size measuring 4.5 cm in transverse dimension. STOMACH AND BOWEL: No evidence of bowel obstruction. PERITONEUM/RETROPERITONEUM: No evidence of pneumoperitoneum or free fluid. VASCULATURE: Mild atherosclerotic calcifications are present throughout the abdominal aorta and its b ranches. No evidence of aortic aneurysm. MUSCULOSKELETAL: No acute osseous abnormalities post arthroplasty changes left hip. Hardware appears intact. LYMPH NODES: No gross evidence for lymphadenopathy. SOFT TISSUE/ABDOMINAL WALL: Ventral wall hernia repair changes. Tiny left fat containing inguinal her ilya. IMPRESSION: 1. There may be a tiny left fat-containing inguinal hernia. 2. Postsurgical changes to the ventral abdominal wall. 3. Prostatomegaly.
== END | disposition home or self-care (01) ==
LOC: RADCTMAIN 11:26
PROVIDERS: ATTEND Surgery
DX: K40.90 Unilateral inguinal hernia, without obstruction or gangrene, not specified as recurrent (principal); N40.0 Benign prostatic hyperplasia without lower urinary tract symptoms
CPT/HCPCS: 72193; Q9967

== ENCOUNTER → 2023-09-24 | Outpatient (CLI) | payer OTHER ==
--- NOTE | 2023-09-30 11:48 | MR ---
EXAMINATION TYPE: MR knee RT wo con DATE OF EXAM: 09/24/2023 COMPARISON: Right knee radiograph 09/23/2023 HISTORY: Right knee pain TECHNIQUE: Multiplanar, multisequence imaging of the right knee is performed without contrast. FINDINGS: Medial meniscus: Nondisplaced horizontal flap tear of the body and posterior horn of the medial menis cus contacting the tibial articular surface. Superimposed partial-thickness radial tear of the safety officer ior root insertion medial meniscus. Medial compartment cartilage: Partial-thickness thinning of the medial compartment cartilage. 3 mm de laminating tear of the central weightbearing aspect medial femoral condyle cartilage. Medial collateral ligament: Intact. Lateral meniscus: Intact. Lateral compartment cartilage: Normal. Lateral collateral ligament: Intact. Patellofemoral alignment: Normal. Patellofemoral compartment cartilage: High-grade thinning throughout the patellofemoral compartment w ith a area of full-thickness articular cartilage loss involving the medial patellar facet. Extensor mechanism: Normal. Anterior cruciate ligament: Intact. Posterior cruciate ligament: Intact. Bone marrow: Normal. Soft tissues: Normal. No joint effusion. Small bilobed Anderson's cyst. Neurovascular: Normal. IMPRESSION: 1. Medial meniscus horizontal flap tear and partial thickness radial tear. 2. High-grade osteoarthrosis patellofemoral compartment.
== END | disposition home or self-care (01) ==
LOC: RADMRIMAIN 16:15
PROVIDERS: ATTEND Orthopaedic Surgery
DX: S83.241A Other tear of medial meniscus, current injury, right knee, initial encounter (principal); M17.11 Unilateral primary osteoarthritis, right knee; X58.XXXA Exposure to other specified factors, initial encounter

== ENCOUNTER → 2023-10-07 | Outpatient (CLI) | payer OTHER ==
[2023-10-07 19:10] LABS: Basophils # (A) 0.05 X 10*3/uL (0.00-0.10); Basophils % (A) 0.8 %; Eosinophils # (A) 0.13 X 10*3/uL (0.04-0.35); Eosinophils % (A) 2.2 %; HCT 44.1 % (39.6-50.0); HGB 14.9 g/dL (13.0-17.0); Lymphocytes % (A) 42.2 %; MCH 31.1 pg (27.0-32.0); MCHC 33.8 g/dL (32.0-37.0); MCV 92.1 FL (80.0-97.0); Mean Platelet Volume 11.3 FL (9.5-12.2); Monocytes # (A) 0.47 X 10*3/uL (0.20-1.00); Monocytes % (A) 7.9 %; NRBC Per 100 WBC 0 X 10*3/uL (0.00-0.01); Neutrophils # (A) 2.76 X 10*3/uL (1.80-7.70); Neutrophils % (A) 46.7 %; Platelet Count 228 X 10*3/uL (140-440); RBC 4.79 X 10*6/uL (4.40-5.60); RDW 12.7 % (11.5-14.5); WBC 5.92 X 10*3/uL (4.50-10.00)
[2023-10-07 19:15] LABS: Anion Gap 13.6 mmol/L (4.00-12.00); Carbon Dioxide 24.4 mmol/L (21.6-31.8)
== END | disposition home or self-care (01) ==
LOC: LABPAT 11:55
PROVIDERS: ATTEND Orthopaedic Surgery
DX: Z01.812 Encounter for preprocedural laboratory examination (principal); M23.91 Unspecified internal derangement of right knee
CPT/HCPCS: 80051; 85025

== ENCOUNTER 2023-10-16 11:26 | Day surgery (SDC) | payer OTHER ==
[2023-10-10 11:29] VITALS: BMI 29.9
--- NOTE | 2023-10-15 14:08 | HP ---
HISTORY AND PHYSICAL DATE OF SURGERY: 10/16/2023. HISTORY OF PRESENT ILLNESS: Tenzin Perdomo is a 63-year-old gentleman, seen with progressive right knee pain. We discussed options regarding treatment. He elected to proceed with right knee arthroscopy. Consent obtained. PAST MEDICAL HISTORY: Hypertension. SURGICAL HISTORY: Left shoulder arthroscopy, left total hip arthroplasty. DAILY MEDICATIONS: 1. Meloxicam. 2. Amlodipine. ALLERGIES: Penicillin. SOCIAL HISTORY: Denies tobacco use. PHYSICAL EVALUATION OF THE RIGHT KNEE: Range of motion is 0 to 130 degrees. He has a mild effusion. Tenderness on the medial joint line. Positive medial Anitha's. Ligaments stable. Hip rotation without pain. Distal neurovascular exam is intact. IMAGING STUDIES: Right knee radiographs revealed moderate patellofemoral compartment osteoarthritis. MRI right knee revealed medial meniscal tear and patellofemoral compartment osteoarthritis. IMPRESSION: Internal derangement of right knee with medial meniscal tear. PLAN: Right knee arthroscopy with partial medial meniscectomy and debridement. MMODL / IJN: [id number] /
[~2023-10-16 11:26] MED LIST changes: -ACETAMINOPHEN TAB 500 MG TAB PO PRN; +DEXAMETHASONE SOD PHOSPHATE 4 MG/ML 1 ML VIAL IV ONE; +HYDROmorphone 0.5 MG/0.5 ML SYRINGE IVP PRN; +LIDOCAINE 1% (10MG/ML) FOR IV START INTRADERMA PRN; -MELOXICAM 7.5 MG TAB PO PRN; +MIDAZOLAM 2 MG/2 ML VIAL IV PRN; +ONDANSETRON 4 MG/2 ML VIAL IVP ONE; -ROPIVACAINE 246.25 MG, EPINEPHrine 0.5 MG, KETOROLAC (30 mg/mL) 30 MG, cloNIDine HCL/PF... MISCELLANE PRN; -TRANEXAMIC ACID 1,000 MG in SODIUM CHLORIDE 0.9% 100 ML IVPB PRN
[2023-10-16] MEDS: LACTATED RINGERS 1,000 ML IV SCH (11:54)
[2023-10-16] MEDS: ONDANSETRON 4 MG/2 ML VIAL IVP ONE (12:15)
[2023-10-16] MEDS: DEXAMETHASONE SOD PHOSPHATE 4 MG/ML 1 ML VIAL IVP ONE (12:16)
[2023-10-16] MEDS: BUPIVACAINE (PF) 0.25% 30 ML VIAL MISCELLANE ONE ×2 (13:30→14:21)
[2023-10-16] MEDS ORDERED: PROPOFOL 10 MG/ML 20 ML VIAL IV ONE (13:36)
[2023-10-16] MEDS ORDERED: MIDAZOLAM 2 MG/2 ML VIAL ONE (13:36)
[2023-10-16] MEDS ORDERED: LIDOCAINE 1% INJ 10MG/ML (20 ML MDV) ONE (13:36)
[2023-10-16] MEDS ORDERED: KETOROLAC 30 MG/ML 1 ML VIAL ONE (13:36)
[2023-10-16] MEDS ORDERED: fentaNYL (PF) 50 MCG/ML 2 ML AMP ONE (13:36)
--- NOTE | 2023-10-16 14:38 | P.OP ---
Date of Procedure: 10/16/23 Preoperative Diagnosis: Internal derangement right knee Postoperative Diagnosis: 1. Tear medial and lateral meniscus right knee 2. Grade IV chondromalacia medial femoral condyle right knee 3. Reactive synovitis medial, lateral and suprapatellar compartments right knee 4. 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 Arthroscopic partial medial and lateral meniscectomy right knee 2. Arthroscopic microfracture medial femoral condyle right knee 3. Arthroscopic partial synovectomy medial, lateral and suprapatellar compartments right knee 4. Arthroscopic chondroplasty medial femoral condyle right knee Anesthesia: JEAN-PAUL, local Surgeon: Shaheed Toribio Estimated Blood Loss (ml): 7 Pathology: none sent Condition: stable Disposition: PACU Indications for Procedure: 63-year-old gentleman seen with progressive right knee pain. After treatment options were discussed, he elected to proceed with arthroscopy. Operative Findings: See description of procedure Description of Procedure: Patient was taken to the operative suite. Patient underwent a general anesthetic by the department of anesthesia. Patient was given preoperative antibiotics. The right lower extremity was placed in a well-padded arthroscopic leg delgadillo. The right leg was prepped and draped in the normal sterile orthopedic fashion. A lateral parapatellar and suprapatellar incision was made. Trochars were inserted. Arthroscopy was initiated. Suprapatellar pouch revealed diffuse thick reactive synovitis. The patellofemoral joint appeared to articulate congruently. There was grade IV chondromalacia involving the medial facet of the patella and medial femoral sulcus with large areas of exposed bone on both sides. The scope was guided into the medial gutter. No loose bodies or plica were identified. The scope was then guided into the medial compartment. A medial parapatellar incision was made. Trocar inserted followed by probe. There was a complex tear involving the medial meniscus. There were grade III/IV chondromalacia changes of the medial femoral condyle with large osteochondral flap tears. There was thick reactive synovitis anteriorly. I performed a partial medial meniscectomy getting down to stable meniscal tissue. I performed a chondroplasty of the medial femoral condyle getting down to stable osteochondral tissue. I performed a partial synovectomy decompressing the thick reactive synovitis. I did note an area of exposed bone measuring about a centimeter involving the medial femoral condyle. I introduced a microfracture awl and I performed a microfracture to that area of exposed bone penetrating the bone with resultant bleeding at the microfracture site. The residual meniscus was stable. The residual osteochondral surface was stable. There was good decompression of the synovitis. Scope and probe were then guided into the intercondylar notch. Cruciates were identified, probed and found to be stable. The scope and probe were then guided into lateral compartment. Was a radial tear involving the anterior horn lateral meniscus. There were grade I chondromalacia changes lateral compartment without tears. There was thick reactive synovitis anteriorly. I performed a partial lateral meniscectomy getting down to stable meniscal tissue. I performed a partial synovectomy decompressing the reactive synovitis. The residual meniscus was probed and was found to be stable. There was good decompression of the synovitis. The scope was in guided back into the suprapatellar compartment. I introduced a motorized shaver into the suprapatellar compartment. I debrided piecemeal fragments of meniscus I encountered. I performed a partial synovectomy. The shaver was now removed. There was good decompression of the synovitis. I did again note that [id number] arthritis in the patellofemoral compartment. I took 1 more look around the entire knee no residual debris. Instruments were now removed from the joint. The joint was infiltrated with .25% Marcaine. Steri-Strips were applied to the portal sites. Sterile dressings were applied. The patient was placed into a MARCELINO hose. No tourniquet was utilized. The patient was awakened, transferred to a bed and taken to recovery stable satisfactory condition.
[2023-10-16] MEDS: HYDROmorphone 0.5 MG/0.5 ML SYRINGE IVP ONE ×3 (15:01→15:24)
[2023-10-16 15:07] VITALS: TEMP 97
[2023-10-16] MEDS: LABETALOL 5 MG/ML VIAL MDV IVP ONE (15:25)
[2023-10-16 16:03] VITALS: RESP 16
[2023-10-16 16:55] VITALS: BP 138/95; PULSE 77
== END 2023-10-16 17:03 | disposition home or self-care (01) ==
LOC: OR 11:26
PROVIDERS: ATTEND Orthopaedic Surgery
DX: S83.241A Other tear of medial meniscus, current injury, right knee, initial encounter (principal); S83.281A Other tear of lateral meniscus, current injury, right knee, initial encounter; M94.261 Chondromalacia, right knee; M65.861 Other synovitis and tenosynovitis, right lower leg; I10 Essential (primary) hypertension; Z88.0 Allergy status to penicillin; Z79.899 Other long term (current) drug therapy; X58.XXXA Exposure to other specified factors, initial encounter
CPT/HCPCS: 29880; 29879; J2250; J1100; J0690; J2405; J2001; J3010; J1885; J2704; J1170; J0665; J1920

== ENCOUNTER 2023-10-27 08:23 | Emergency (ER) | payer OTHER ==
--- NOTE | 2023-10-27 08:47 | ED ---
General Adult HPI - General Chief complaint: Extremity Problem,Nontraumatic Stated complaint: Post Op Blood Clot Time Seen by Provider: 10/27/23 08:30 Source: patient, RN notes reviewed, old records reviewed Mode of arrival: ambulatory Limitations: no limitations - History of Present Illness Initial comments: 63-year-old male who is 10 days postop meniscal repair in the right knee presenting with swelling and bruising behind the knee and upper calf. Patient concern for DVT. No fever in the past 1 week. No chest pain or dyspnea. - Related Data Home Medications Medication Instructions Recorded Confirmed amLODIPine BESYLATE/BENAZEPRIL 1 each PO 1800 05/17/21 10/16/23 [amLODIPine BESYLATE/BENAZEPRIL 5-10 MG] Previous Rx's Medication Instructions Recorded traMADol HCl [Ultram] 50 mg PO Q6H PRN #12 tab 10/16/23 Allergies Allergy/AdvReac Type Severity Reaction Status Date / Time No Known Allergies Allergy Verified 10/16/23 11:53 Review of Systems ROS Statement: Those systems with pertinent positive or pertinent negative responses have been documented in the HPI. ROS Other: All systems not noted in ROS Statement are negative. Past Medical History Past Medical History: Hypertension, Osteoarthritis (OA) Additional Past Medical History / Comment(s): SCREENING History of Any Multi-Drug Resistant Organisms: None Reported Past Surgical History: Hernia Repair, Orthopedic Surgery, Tonsillectomy Additional Past Surgical History / Comment(s): INCISIONAL HERNIA REPAIR , THUMB- TENDON REPAIR, LT ROTATOR CUFF REPAIR, LT LA 2020, LT KNEE SCOPE, COLONOSCOPY Past Anesthesia/Blood Transfusion Reactions: Motion Sickness, Postoperative Nausea & Vomiting (PONV) Past Psychological History: No Psychological Hx Reported Smoking Status: Never smoker - Past Family History Mother Family Medical History: No Reported History General Exam Limitations: no limitations General appearance: alert, in no apparent distress Head exam: Present: atraumatic, normocephalic Eye exam: Present: normal appearance, PERRL Neck exam: Present: normal inspection Respiratory exam: Present: normal lung sounds bilaterally. Absent: respiratory distress, wheezes Cardiovascular Exam: Present: regular rate, normal rhythm GI/Abdominal exam: Present: soft. Absent: distended Extremities exam: Present: normal capillary refill, other (Most spine the right knee, no calf tenderness, no significant knee swelling. ) Course Vital Signs 10/27/23 08:25 Temperature 99 F Pulse Rate 80 Respiratory 20 Rate Blood Pressure 135/83 O2 Sat by Pulse 98 Oximetry Medical Decision Making - Medical Decision Making Was pt. sent in by a medical professional or institution ([facility]IGHTON Camacho, MAIL CALLER, urgent care, hospital, or long-term...) When possible be specific @ -No Did you speak to anyone other than the patient for history (EMS, parent, family, police, friend...)? What history was obtained from this source @ -No Did you review nursing and triage notes (agree or disagree)? Why? @ -I reviewed and agree with nursing and triage notes Were old charts reviewed (outside hosp., previous admission, EMS record, old EKG, old radiological studies, urgent care reports/EKG's, long-term records)? Report findings @ -No old charts were reviewed Differential Musculoskeletal Muscular strain, contusion, ligament sprain, fracture, arthritis, septic arthritis, bursitis, cellulitis, muscle spasm, nerve compression, DVT, arterial occlusion, herpes zoster, electrolyte abnormality, tumor.... This is not meant to be in all inclusive list EKG interpreted by me (3pts min.). @ -As above X-rays interpreted by me (1pt min.). @ -None done CT interpreted by me (1pt min.). @ -None done U/S interpreted by me (1pt. min.). @ -[Ultrasound negative for DVT What testing was considered but not performed or refused? (CT, X-rays, U/S, labs)? Why? @ -None What meds were considered but not given or refused? Why? @ -None Did you discuss the management of the patient with other professionals (professionals i.e. LEIGHTON Camacho, MAIL CALLER, lab, RT, psych nurse, high school social studies tutor, laboratory cureman, teacher, policy officer, case therapist)? Give summary @ -No Was smoking cessation discussed for >3mins.? @ -No Was critical care preformed (if so, how long)? @ -No Were there social determinants of health that impacted care today? How? (Homelessness, low income, unemployed, alcoholism, drug addiction, transportati on, low edu. Level, literacy, decrease access to med. care, [facility], rehab)? @ -No Was there de-escalation of care discussed even if they declined (Discuss DNR or withdrawal of care, Hospice)? DNR status @ -No What co-morbidities impacted this encounter? (DM, HTN, Smoking, COPD, CAD, Cancer, CVA, ARF, Chemo, Hep., AIDS, mental health diagnosis, sleep apnea, morbid obesity)? @ -None Was patient admitted / discharged? Hospital course, mention meds given and route, prescriptions, significant lab abnormalities, going to OR and other pertinent info. @63-year-old male with postoperative swelling and ecchymosis of the right lower extremity behind the knee and upper calf. Ultrasound negative for DVT. Patient will follow-up with his orthopedic surgeon. Undiagnosed new problem with uncertain prognosis? @ -No Drug Therapy requiring intensive monitoring for toxicity (Heparin, Nitro, Insulin, Cardizem)? @ -No Were any procedures done? @ -No Diagnosis/symptom? @ -[Postoperative swelling and bruising Acute, or Chronic, or Acute on Chronic? @ -Acute Uncomplicated (without systemic symptoms) or Complicated (systemic symptoms)? @ -[default Side effects of treatment? @ -No Exacerbation, Progression, or Severe Exacerbation? @ -No Poses a threat to life or bodily function? How? (Chest pain, [place], CA, pneumonia, PE, COPD, DKA, ARF, appy, cholecystitis, CVA, Diverticulitis, Homicidal, Suicid al, threat to staff... and all critical care pts) @ -No Disposition Clinical Impression: Status post medial meniscal repair Disposition: HOME SELF-CARE Condition: Good Instructions (If sedation given, give patient instructions): Swollen Knee Joint (ED) Is patient prescribed a controlled substance at d/c from ED?: No Referrals: Jennifer Toribio NPC [Primary Care Provider] - 1-2 days Shaheed Toribio DO [Doctor of Osteopathic Medicine] - 1-2 days Time of Disposition: 09:30
--- NOTE | 2023-10-27 09:41 | US ---
EXAMINATION TYPE: US venous doppler duplex LE RT DATE OF EXAM: 10/27/2023 9:02 AM COMPARISON: NONE CLINICAL INDICATION: Male, 63 years old with history of swelling, post op; post op bruising. SIDE PERFORMED: Right TECHNIQUE: The lower extremity deep venous system is examined utilizing real time linear array sonog aiden with graded compression, doppler sonography and color-flow sonography. VESSELS IMAGED: Common Femoral Vein Deep Femoral Vein Greater Saphenous Vein * Femoral Vein Popliteal Vein Small Saphenous Vein * Proximal Calf Veins (* superficial vessels) Right Leg: Negative for DVT IMPRESSION: Grayscale, color doppler, spectral doppler imaging performed of the deep veins of the lo wer extremities. There is normal flow, compressibility, vascular waveforms.
[2023-10-27 10:21] VITALS: BP 128/78; PULSE 74; RESP 16; TEMP 98
== END 2023-10-27 09:48 | disposition home or self-care (01) ==
LOC: EC 08:23
DX: M96.840 Postprocedural hematoma of a musculoskeletal structure following a musculoskeletal system procedure (principal)
CPT/HCPCS: 99283

== ENCOUNTER → 2023-11-26 | Outpatient (CLI) | payer OTHER ==
[2023-11-26 08:49] VITALS: BP 158/94; PULSE 96; RESP 16
--- NOTE | 2023-11-26 14:50 | P.PAINPG ---
PQRS Measure Charge Sheet Comment: HISTORY OF PRESENT ILLNESS: A 63 yr old male as a referral from Dr Toribio presents today w severe and chronic L Hip pain secondary to DJD for evaluation. Pt states pain level is provoked at 6 /10 in intensity, constant, localized in the L hip, sharp in character without shooting pain. Pain is provoked by weight bearing. Pain is alleviated by PT x 6 wks in 2021, physician guided home exercises/ stretches every other day since Aug 2023, medications (Tramadol), topical, repositioning and rest . PMH: OA, HTN, BPH PSH: Incisional Hernia Repair, L LA (2020), L Knee Arthroscopy, R Knee Arthroscopy (2023), L RCT Repair, Thumb Tendon Repair, Tonsillectomy Colonoscopy SH: Never smoker, Occasional ETOH, No illicit drug use FH: Non contributory All: See list Meds: See list REVIEW OF ORGAN SYSTEMS: CONSTITUTIONAL: No fevers or chills. No recent weight loss. NEUROLOGICAL: + numbness and tingling along the distal extremities. No seizure disorders or headaches. MUSCULOSKELETAL: + pain PSYCHIATRIC: Denies current depression or suicidal thoughts. Physical Examinations : Constitutional : Cooperative , not in acute distress . Neurologic : Cranial nerve II to XII intact. No focal neurological deficits. Psychiatric : alert & oriented x 3. Matching mood & appropriate affect. Judgment & insight intact. Musculoskeletal : Cervical Spine Motor strength in the deltoid and biceps: Normal right side. Normal Left side Motor strength biceps and the wrist extensors: Normal right side . Normal left side Motor strength in the triceps muscle: Normal right side. Normal left side Deep tendon reflexes: Normal at the biceps. Normal at Brachioradialis. Normal at triceps Vertebral body tenderness to deep palpation over Cervical facet loading test: positive bilaterally Spurling test: positive bilaterally Neck distraction test: positive bilaterally Eric sign: positive bilaterally Lumbar spine +L Trendelenburg Motor strength lower extremities ,thigh and legs 5/5 Right side , 5/5 Left side Deep tendon reflexes : Normal Knee Jerk. Normal Ankle Jerk Vertebral body tenderness over Ward Test positive Lumbar facet Loading Test: positive Right / positive Left Range of motion of the lumbar spine Flexion 30 degrees, extension 10 degrees Straight Leg Raise test: Left/ Right positive at degrees Lili test: positive right / positive left. Severe tenderness over the Sacroiliac joint on the Right / Left sides Gaenslen test: positive bilaterally Seated flexion test: positive bilaterally. Sacral spine : Severe tenderness over the Sacroiliac joint: right side / left side Range of motion: Flexion of the lumbar spine <60 degrees Range of motion: Extension of the lumbar spine <20 degrees Gaenslen's Test positive Lili test: positive right side / left side Thigh Thrust Test Sacral Thrust Test Imaging: CT non contrast of pelvis from 09/13/22 reviewed Assessment/ Plan : L hip DJD, L LA Hip Recommendation of L hip trochanteric bursa injection #1. May need a series of injections for optimal pain relief. Risks, benefits of procedure discussed and patient verbalized understanding. Admits to anti- coagulant use or medical history of diabetes. Protocol for discontinuation/ continuation of medications eri procedure discussed. All questions answered. I have spent greater than 30 minutes on patient care today. Dr Leon was available by phone for the evaluation of this patient. The time was used to review the medical records including relevant urine studies and Prescription history (MAPs), review of the available imaging, evaluation and examination of the patient, coordination of care with the medical staff and if applicable referring physicians, as well as creation of the medical record PQRS Narrative: Smoking Status Never smoker Home Medications: Ambulatory Orders amLODIPine BESYLATE/BENAZEPRIL [amLODIPine BESYLATE/BENAZEPRIL 5-10 MG] 1 each PO 1800 05/17/21 traMADol HCl [Ultram] 50 mg PO Q6H PRN #12 tab 10/16/23 Controlled Substance Measures - Controlled Substance Measures Is patient prescribed a controlled substance at discharge?: No
== END ==
LOC: PNWHC3 08:11
PROVIDERS: ATTEND Specialist
DX: M16.12 Unilateral primary osteoarthritis, left hip (principal); T84.84XA Pain due to internal orthopedic prosthetic devices, implants and grafts, initial encounter; Z96.642 Presence of left artificial hip joint
CPT/HCPCS: 99211

== ENCOUNTER 2023-12-02 11:13 | Day surgery (SDC) | payer OTHER ==
[2023-12-02 11:35] VITALS: TEMP 98.1
[2023-12-02] MEDS ORDERED: methylPREDNISolone ACETATE 80 MG/ML 1 ML VIAL ONE (12:17)
[2023-12-02] MEDS ORDERED: ROPIVACAINE 5MG/ML 20ML VIAL ONE (12:17)
--- NOTE | 2023-12-02 12:37 | P.PCN ---
Date of Procedure: 12/02/23 Procedure(s) Performed: Description of Procedure: PREOPERATIVE DIAGNOSIS: Left hip arthralgia POSTOPERATIVE DIAGNOSIS: same PROCEDURES: left Maddison articular hip injection with fluoroscopy (fluoroscopy images available in the radiology Department ) ANESTHESIA: 1% lidocaine plain. EBL: Minimal PROCEDURE INDICATION: The patient with left hip pain after total hip replacement which was done 3 years ago, who has been unresponsive to conservative therapy. No use of blood thinners. PROCEDURE DESCRIPTION / TECHNIQUE: The patient was seen and identified in the preoperative area. Risks, benefits, complications, and alternatives were discussed with the patient (including but not limited to incomplete pain relief, bleeding, infection, nerve damage, and allergies to medications), the patient agreed to proceed with the procedure and signed the consent after all questions were answered. Patient was taken to the OR and time out was completed to verify proper patient, position, laterality of pain, and allergies. Pt was placed in the Supine position. Vital signs remained stable throughout the procedure. . The Hip and the Groin area was prepped and draped in the usual sterile fashion. Vital signs were closely monitored during the procedure. Using AP fluoroscopy, the femoral neck was identified, marked, and localized with Ropivacaine 0.5 % . Subsequently, a 22 gauge 5-inch spinal needle was advanced guided by fluoroscopy to the 10 o'clock position on the femoral neck (then needel was outside the prosthesis, and it did not touch the prosthesis). t. After negative aspiration for heme and in the absence of paresthesias, the full 8 ml ml of the block solution containing Depo-Medrol 80 mg and 8 mL of preservative-free 0.5% Ropivacaine was injected. At the end of the procedure, the skin was cleansed and bandages were applied. COMPLICATIONS: No acute complications. DISPOSITION / PLANS: The patient was placed in a supine position and transferred to the recovery area in a stable condition for observation and was discharged from the recovery room after meeting discharge criteria. Home discharge instructions given to the patient by the staff..
--- NOTE | 2023-12-02 12:37 | FL ---
EXAMINATION TYPE: FL guided pain mgmt statistic DATE OF EXAM: 12/02/2023 HISTORY: Fluoroscopy time Total dose area product (DAP) in uGy*m?, mGy*cm? (or similar): 0.28714 IMPRESSION: 1. Fluoroscopy time.
[2023-12-02 12:38] VITALS: RESP 16
[2023-12-02 12:53] VITALS: BP 147/92; PULSE 65
== END 2023-12-02 13:07 | disposition home or self-care (01) ==
LOC: ORPAIN 11:13
PROVIDERS: ATTEND Specialist
DX: M25.552 Pain in left hip (principal); Z79.899 Other long term (current) drug therapy
CPT/HCPCS: 20610; J2795; J1010

== ENCOUNTER → 2024-05-31 | Outpatient (CLI) | payer OTHER ==
--- NOTE | 2024-05-31 12:59 | MR ---
EXAMINATION TYPE: MR shoulder RT wo con DATE OF EXAM: 05/31/2024 11:44 AM COMPARISON: Radiograph 05/19/2024 CLINICAL INDICATION: Male, 64 years old with history of M25.511 PAIN IN RIGHT SHOULDER, Rt shoulder p ain, decreased range of motion and strength TECHNIQUE: Multiplanar, multisequence imaging of the right shoulder is performed without contrast. FINDINGS: Intracapsular portion of the long biceps tendon is not well seen and may be torn, possibly scarred do wn in the bicipital groove. The subscapularis tendon insertion appears diminutive, sagittal image 11 suggesting partial tear. There is severe degenerative change of the acromioclavicular joint with joint space narrowing, margin al spurring, subchondral cystic change. Inferior spurring prominently indents the myotendinous juncti on of the supraspinatus. There is bursal sided fraying throughout both supraspinatus and infraspinatus tendons. Extensive int rasubstance change, thickening, and heterogeneity is present throughout. Area of shallow bursal sided tear of the infraspinatus tendon measuring 6 mm long by 1.1 cm AP. Shallow articular sided tear of the posterior supraspinatus tendon fibers measuring 6 x 8 mm. High-grade partial tear anterior supraspinatus tendon fibers measuring 10 x 8 mm. There is isolated atrophy of the teres minor muscle. No other rotator cuff muscle atrophy is seen. The glenohumeral joint is intact with mild to moderate cartilage thinning along the superior humeral head articular surface. Degenerative signal in the superior labrum with a tiny 4 mm posterior labral cyst. Physiologic minima l joint fluid. No Hill-Sachs deformity or os acromiale. Patchy red marrow hyperplasia which can be seen with anemia, obesity, smoking, and chronic disease. IMPRESSION: 1. Severe diffuse rotator cuff tendinosis with extensive intrasubstance change throughout. 2. A small, high-grade partial thickness tear anterior supraspinatus tendon measuring 10 x 8 mm. Othe rwise, extensive articular and bursal sided fraying/shallow tearing is present throughout. 3. The subscapularis tendon insertion at the lesser tuberosity appears diminutive suggesting a partia l tear. 4. Subacromial impingement with severe AC joint OA. 5. Isolated atrophy of the teres minor which may be idiopathic or could be seen with quadrilateral sp sneha syndrome. No mass lesion is identified in this region. 6. Superior and posterior labral tear. 7. The intracapsular portion of the long biceps tendon is not seen. It may be torn and scarred down i n the bicipital groove. [facility] Hugo Romero, , 05/31/2024 12:57 PM
== END | disposition home or self-care (01) ==
LOC: RADMRIMAIN 11:01
PROVIDERS: ATTEND Orthopaedic Surgery
DX: M67.813 Other specified disorders of tendon, right shoulder (principal); M75.111 Incomplete rotator cuff tear or rupture of right shoulder, not specified as traumatic; M19.011 Primary osteoarthritis, right shoulder; M25.811 Other specified joint disorders, right shoulder